=== PATIENT | female | born 1970 | race Caucasian/White ===

== ENCOUNTER 2017-09-21 14:22 | Emergency (ER) | payer MEDICAID ==
[2017-09-21 15:37] LABS: ADD UMIC NO; UR ASCORBIC ACID 20 mg/dL (NEGATIVE); UR BACTERIA FEW /HPF (NONE SEEN); UR BILIRUBIN (Dip) NEGATIVE (NEGATIVE); UR BLOOD (Dip) NEGATIVE (NEGATIVE); UR CLARITY SLIGHTLY CLOUDY (CLEAR); UR COLOR YELLOW (YELLOW); UR GLUCOSE (Dip) NEGATIVE (NEGATIVE); UR KETONES (Dip) NEGATIVE (NEGATIVE); UR LEUKOCYTE ESTERASE (Dip) NEGATIVE Leu/ul (NEGATIVE); UR NITRITE (Dip) NEGATIVE (NEGATIVE); UR RBC 0 /HPF (0-5); UR SPECIFIC GRAVITY (Dip) 1.009 (1.003-1.030); UR SQUAMOUS EPITHELIAL CELL FEW /HPF (FEW); UR TOTAL PROTEIN (Dip) NEGATIVE (NEGATIVE); UR UROBILINOGEN (Dip) NEGATIVE (NEGATIVE); UR WBC 0 /HPF (0-5)
== END 2017-09-21 16:29 | disposition home or self-care (01) ==
LOC: FTE 14:22
DX: R10.2 Pelvic and perineal pain (principal); M54.9 Dorsalgia, unspecified
CPT/HCPCS: 76830; 76856; 81001; 81003; 81025; 99284-25

== ENCOUNTER 2018-04-12 18:59 | Emergency (ER) | payer MEDICAID | END 2018-04-12 20:43 | disposition home or self-care (01) | LOC: FTE 18:59 | DX: J06.9 Acute upper respiratory infection, unspecified (principal) | CPT/HCPCS: 99283; Z7502 ==

== ENCOUNTER 2018-07-14 12:26 | Emergency (ER) | payer MEDICAID | END 2018-07-14 13:50 | disposition home or self-care (01) | LOC: FTE 12:26 | DX: N94.89 Other specified conditions associated with female genital organs and menstrual cycle (principal); R21 Rash and other nonspecific skin eruption | CPT/HCPCS: 99283 ==

== ENCOUNTER 2018-09-02 12:32 | Emergency (ER) | payer MEDICAID | END 2018-09-02 15:45 | disposition home or self-care (01) | LOC: E/R 12:32 | DX: J20.9 Acute bronchitis, unspecified (principal) | CPT/HCPCS: 99283; Z7502 ==

== ENCOUNTER 2019-03-13 12:53 | Emergency (ER) | payer MEDICAID ==
[2019-03-13] MEDS: ONDANSETRON (ODT) 4 MG TAB ODT (16:40)
[2019-03-13] MEDS: IBUPROFEN 800 MG TAB PO ×2 (16:40→16:43)
[2019-03-13] MEDS: ACETAMINOPHEN 325 MG TAB PO (16:47)
== END 2019-03-13 16:51 | disposition home or self-care (01) ==
LOC: E/R 12:53
DX: R10.13 Epigastric pain (principal); R11.2 Nausea with vomiting, unspecified
CPT/HCPCS: 36415; 76705; 80053; 81001; 83690; 84703; 85025; 99284-25